=== PATIENT | male | born 1980 | race Caucasian/White ===

== ENCOUNTER 2020-01-14 14:12 | Emergency (ER) | payer OTHER, SELFPAY ==
[~2020-01-14] VITALS: Ht 177.8 cm; Wt 95.3 kg
[2020-01-14 14:19] VITALS: BP 122/66
--- NOTE | 2020-01-14 14:24 | NUR ---
pt states, he awoke today with headache, low grade fever, bodyaches, and mild cough full clear speech denies sob no accessory muscle use noted at this time
[2020-01-14 15:10] VITALS: BP 127/87
--- NOTE | 2020-01-14 15:11 | NUR ---
covig-19 swab collected Patient discharged with v/s stable. Written and verbal after care instructions given and explained. Patient alert, oriented and verbalized understanding of instructions. Ambulatory with steady gait. All questions addressed prior to discharge. ID band removed. Patient advised to follow up with PMD. Rx of tylenol/motrin given. Patient educated on indication of medication including possible reaction and side effects. Opportunity to ask questions provided and answered.
== END 2020-01-14 15:08 | disposition home or self-care (01) ==
LOC: EEVIPCON 14:12 → MED 14:12
DX: R50.9 Fever, unspecified (principal); M79.10 Myalgia, unspecified site; R05 Cough; Z20.828 Contact with and (suspected) exposure to other viral communicable diseases
CPT/HCPCS: 99283; U0003